=== PATIENT | male | born 1960 | race American Indian/Alaskan Native ===

== ENCOUNTER 2021-08-22 12:00 | Inpatient (IN) | payer BC ==
[2021-08-22] MEDS ORDERED: LACTATED RINGERS 1000 ML IV SOLN IV ONE (12:06)
[2021-08-22] MEDS ORDERED: ACETAMINOPHEN 500 MG TAB PO ONE (12:08)
--- NOTE | 2021-08-22 12:09 | Emergency Department Report ---
ED General Adult HPI - General Chief complaint: Weakness Stated complaint: weak PUI?: Yes Time Seen by Provider: 08/22/21 12:06 Source: patient, EMS (Verbal report received from emergency medical services. EMS documentation not available at time of chart dictation ), RN notes reviewed Mode of arrival: Stretcher Limitations: Physical Limitation - History of Present Illness Initial comments: The patient was evaluated in the emergency department for symptoms described in the history of present illness. He/she was evaluated in the context of the global COVID-19 pandemic, which necessitated consideration that the patient migh t be at risk for infection with the virus that causes COVID-19. Institutional protocols and algorithms that pertain to the evaluation of patients at risk for COVID-19 are in a state of rapid change based on information released by regulatory bodies including the CDC and federal and state organizations. These policies and algorithms were followed during the patient's care in the emergency department. Please note that these policies, procedures and recommendations changed on a rapid basis. The patient is a 61-year-old gentleman. This patient was recently admitted to [facility] July 14 through July 16. He was admitted for bacteremia and positive blood cultures. He was started on Keflex, and discontinued on Ceftin. He is supposed to follow-up with an outpatient primary care physician, Dr. Brenner, on July 30. It is unclear if he followed up. He also has a history of ICD in situ, diabetes, and was admitted to [facility] for COVID-19, and rule out C. difficile. Current medications include aspirin, atorvastatin, the aforementioned antibiotics, diclofenac, insulin, Lantus, and Flomax/tamsulosin. He is brought to the hospital today by emergency medical services with an EMS articulated complaint of weakness, fever, tachycardia, and diarrhea. The patient reports that he is been having a couple episodes of orange-yellow diarrhea. He reports that he feels very weak. He denies physical pain. The patient himself does not feel short of breath. He is found to be febrile, tachycardic, and hypotensive in the emergency room. Patient reports no anaphylactoid or anaphylactic reactions to penicillins. He states "I do not like the way it makes me feel." As per EMS, patient has been having weakness and diarrhea for the past few days. -: Gradual Consistency: constant Improves with: none Worsens with: none - Related Data Home Medications Medication Instructions Recorded Confirmed Last Taken Amlodipine Besylate [Norvasc] 10 mg PO DAILY 08/22/21 08/22/21 08/22/21 Insulin Lispro [Humalog Eusebio 5 unit SQ TID 08/22/21 08/22/21 Unknown Kwikpen] Metformin HCl [metFORMIN] 1,000 mg PO BID 08/22/21 08/22/21 Unknown Tamsulosin [Flomax] 0.4 mg PO QDAY 08/22/21 08/22/21 08/22/21 carvediloL [Coreg] 25 mg PO BID 08/22/21 08/22/21 08/22/21 Allergies Allergy/AdvReac Type Severity Reaction Status Date / Time Penicillins Allergy Unknown Verified 08/22/21 11:55 ED Review of Systems ROS: Stated complaint: DIARRHEA Other details as noted in HPI Constitutional: fever, malaise, weakness ENT: denies: congestion Respiratory: denies: cough Cardiovascular: denies: chest pain Gastrointestinal: diarrhea. denies: abdominal pain, nausea, vomiting Genitourinary: denies: dysuria Neurological: weakness. denies: numbness ED Past Medical Hx - Medications Home Medications: Home Medications Medication Instructions Recorded Confirmed Last Taken Type Amlodipine Besylate [Norvasc] 10 mg PO DAILY 08/22/21 08/22/21 08/22/21 History Insulin Lispro [Humalog Euseibo 5 unit SQ TID 08/22/21 08/22/21 Unknown History Kwikpen] Metformin HCl [metFORMIN] 1,000 mg PO BID 08/22/21 08/22/21 Unknown History Tamsulosin [Flomax] 0.4 mg PO QDAY 08/22/21 08/22/21 08/22/21 History carvediloL [Coreg] 25 mg PO BID 08/22/21 08/22/21 08/22/21 History ED Physical Exam - General Limitations: Physical Limitation General appearance: alert, anxious - Head Head exam: Present: atraumatic, normocephalic - Eye Eye exam: Present: normal appearance, EOMI. Absent: nystagmus - ENT ENT exam: Present: normal exam, normal orophraynx, mucous membranes dry, normal external ear exam - Neck Neck exam: Present: normal inspection, full ROM. Absent: tenderness, meningismus - Respiratory Respiratory exam: Present: respiratory distress, rhonchi, accessory muscle use - Cardiovascular Cardiovascular Exam: Present: normal rhythm, tachycardia, normal heart sounds. Absent: bradycardia, irregular rhythm, systolic murmur, diastolic murmur, rubs, gallop - GI/Abdominal GI/Abdominal exam: Present: soft. Absent: distended, tenderness, guarding, rebound, rigid, pulsatile mass - Rectal Rectal exam: Present: deferred - Extremities Exam Extremities exam: Present: normal inspection, full ROM, other (2+ pulses noted in the bilateral upper and lower extremities. There is no palpable cord. negative Homans sign. Muscular compartments are soft. The pelvis is stable.). Absent: pedal edema, calf tenderness - Back Exam Back exam: Present: normal inspection, full ROM. Absent: tenderness, CVA tenderness (R), CVA tenderness (L), paraspinal tenderness, vertebral tenderness - Neurological Exam Neurological exam: Present: alert, oriented X3, other (No facial droop. Tongue midline. Extraocular movements intact bilaterally. Facial sensation intact to light touch in V1, V2, V3 distribution bilaterally. 5 and a 5 strength in 4 extremities. Sensation intact to light touch in 4 extremities.) - Psychiatric Psychiatric exam: Present: anxious - Skin Skin exam: Present: warm, dry, intact, normal color. Absent: rash ED Course Vital Signs 08/22/21 08/22/21 08/22/21 12:01 12:27 12:30 Temperature 102 F H Pulse Rate 126 H 110 H 104 H Respiratory 16 28 H 27 H Rate Blood Pressure 123/67 Blood Pressure 81/52 [Left] O2 Sat by Pulse 95 97 98 Oximetry O2 Sat by Pulse Oximetry [ Digit-Finger] 08/22/21 08/22/21 08/22/21 12:32 12:46 13:00 Temperature 101.8 F H Pulse Rate 101 H 94 H 94 H Respiratory 20 21 27 H Rate Blood Pressure 1233/67 125/67 112/57 Blood Pressure 123/67 [Left] O2 Sat by Pulse 95 99 96 Oximetry O2 Sat by Pulse Oximetry [ Digit-Finger] 08/22/21 08/22/21 13:16 13:58 Temperature Pulse Rate 89 Respiratory 25 H Rate Blood Pressure 112/57 Blood Pressure [Left] O2 Sat by Pulse 99 Oximetry O2 Sat by Pulse 99 Oximetry [ Digit-Finger] - Reevaluation(s) Reevaluation #1: 08/22/21 12:17 Differential diagnosis, including but not limited to: Bacteremia, viremia, pneu monia, urinary tract infection, antibiotic associated diarrhea, COVID-19/Covid gilberto Assessment and plan: 61-year-old gentleman, who is febrile, tachycardic and hypotensive, tachypneic with rhonchorous breath sounds, recently admitted to [facility] for bacteremia. Code sepsis called overhead. Patient does not recall specifically what organism grew in his blood cultures, nor is she aware of culture results. He has rhonchorous breath sounds and is markedly tachypneic. He is awake, alert, oriented and sober with a GCS of 15. He has a nonfocal motor exam. Code sepsis called overhead. Start aggressive fluid resuscitation. Have requested medical records from [facility] to review culture results. Anticipate admission to the medical service. Start isolation precautions to rule out C. difficile, as well as rule out Covid. Patient not hypoxic at this time, does not require steroids. 08/22/21 13:37 Blood pressure is improved. Laboratory studies pending. Patient is agreeable to admission at this hospital. EKG is pending. We are still awaiting medical records from [place]. 08/22/21 13:58 Blood pressure is improved. 08/22/21 14:01 Patient's labs have resulted. He is found to have mild anemia, hyponatremia which is most likely hypovolemic hyponatremia, hypokalemia, hypomagnesemia, elevated troponin which is likely a type II troponin leak, and a lactic acido sis. His medical records have not arrived. He continued to denies physical pain. We will therefore treat him empirically with ceftriaxone and oral vancomycin. As a third generation cephalosporin, ceftriaxone is structurally similar to penicillin, and very unlikely to cause an anaphylactic and/or anaphylactoid reaction. In addition, as per his enclosed discharge summary that he arrives with, he has been prescribed Keflex as well as Ceftin, and reports tolerating those without difficulty. Hospital physician, Dr. Diaz, to admit patient to the medical service. - Pulse Oximetry Interpretation Digit-Finger Initial Pulse Oximetry Readin O2 Sat by Pulse Oximetry: 99 Actions Taken: none ED Medical Decision Making - Lab Data Result diagrams: 08/22/21 13:13 08/22/21 13:13 Vital Signs 08/22/21 12:01 Temperature 102 F H Pulse Rate 126 H Respiratory 16 Rate Blood Pressure 81/52 [Left] O2 Sat by Pulse 95 Oximetry Lab Results 08/22/21 08/22/21 08/22/21 Range/Units 13:13 13:13 13:13 WBC 4.8 (4.5-11.0) K/mm3 RBC 3.07 L (3.65-5.03) M/mm3 Hgb 10.8 L (11.8-15.2) gm/dl Hct 32.6 L (35.5-45.6) % MCV 106 H (84-94) fl MCH 35 H (28-32) pg MCHC 33 (32-34) % RDW 16.8 H (13.2-15.2) % Plt Count 82 L (140-440) K/mm3 Lymph % (Auto) 11.2 L (13.4-35.0) % [place] % (Auto) 13.0 H (0.0-7.3) % Eos % (Auto) 0.2 (0.0-4.3) % Baso % (Auto) 0.2 (0.0-1.8) % Lymph # (Auto) 0.5 L (1.2-5.4) K/mm3 [place] # (Auto) 0.6 (0.0-0.8) K/mm3 Eos # (Auto) 0.0 (0.0-0.4) K/mm3 Baso # (Auto) 0.0 (0.0-0.1) K/mm3 Seg Neutrophils % 75.4 H (40.0-70.0) % Seg Neutrophils # 3.6 (1.8-7.7) K/mm3 APTT 29.2 (24.2-36.6) Sec. VBG pH (7.320-7.420) Lactic Acid 3.20 H* (0.7-2.0) mmol/L 08/22/21 Range/Units 13:13 WBC (4.5-11.0) K/mm3 RBC (3.65-5.03) M/mm3 Hgb (11.8-15.2) gm/dl Hct (35.5-45.6) % MCV (84-94) fl MCH (28-32) pg MCHC (32-34) % RDW (13.2-15.2) % Plt Count (140-440) K/mm3 Lymph % (Auto) (13.4-35.0) % [place] % (Auto) (0.0-7.3) % Eos % (Auto) (0.0-4.3) % Baso % (Auto) (0.0-1.8) % Lymph # (Auto) (1.2-5.4) K/mm3 [place] # (Auto) (0.0-0.8) K/mm3 Eos # (Auto) (0.0-0.4) K/mm3 Baso # (Auto) (0.0-0.1) K/mm3 Seg Neutrophils % (40.0-70.0) % Seg Neutrophils # (1.8-7.7) K/mm3 APTT (24.2-36.6) Sec. VBG pH 7.456 H (7.320-7.420) Lactic Acid (0.7-2.0) mmol/L Vital Signs 08/22/21 08/22/21 08/22/21 12:01 12:27 12:30 Temperature 102 F H Pulse Rate 126 H 110 H 104 H Respiratory 16 28 H 27 H Rate Blood Pressure 123/67 Blood Pressure 81/52 [Left] O2 Sat by Pulse 95 97 98 Oximetry O2 Sat by Pulse Oximetry [ Digit-Finger] 08/22/21 08/22/21 08/22/21 12:32 12:46 13:00 Temperature 101.8 F H Pulse Rate 101 H 94 H 94 H Respiratory 20 21 27 H Rate Blood Pressure 1233/67 125/67 112/57 Blood Pressure 123/67 [Left] O2 Sat by Pulse 95 99 96 Oximetry O2 Sat by Pulse Oximetry [ Digit-Finger] 08/22/21 08/22/21 13:16 13:37 Temperature Pulse Rate 89 Respiratory 25 H Rate Blood Pressure 112/57 Blood Pressure [Left] O2 Sat by Pulse 99 Oximetry O2 Sat by Pulse 99 Oximetry [ Digit-Finger] - EKG Data EKG shows normal: sinus rhythm Rate: normal - EKG Data When compared to previous EKG there are: previous EKG unavailable 08/22/21 14:02 The EKG is interpreted at 13: 41 Sinus rhythm, rate 87 bpm. Left axis deviation, left anterior fascicular block, right bundle branch block, QTC is 5 5 1 ms. This is an abnormal EKG. This is not a STEMI. There is no prior EKG available for comparison - Radiology Data Radiology results: pending, image reviewed interpreted by me: 1 view x-ray of the chest, interpreted by myself, ICD in situ, no pneumothorax, no obvious infiltrate CHEST 1 VIEW 08/22/2021 11:37 AM INDICATION / CLINICAL INFORMATION: rhonchi tachypnea sepsis. COMPARISON: None available. FINDINGS: SUPPORT DEVICES: Stable, satisfactory device positioning. HEART / MEDIASTINUM: No significant abnormality. LUNGS / PLEURA: No significant pulmonary or pleural abnormality. No pneumothorax. ADDITIONAL FINDINGS: No significant additional findings. IMPRESSION: 1. No acute findings. Signer Name: Gen Holloway MD Signed: 08/22/2021 11:41 AM Workstation Name: [email or web address] Critical Care Time: Yes Critical care time in (mins) excluding proc time.: 35 Critical care attestation.: If time is entered above; I have spent that time in minutes in the direct care of this critically ill patient, excluding procedure time. ED Disposition Clinical Impression: Sepsis, Diarrhea, Weakness, Hypokalemia, Hypomagnesemia, Hyponatremia, Dehydration, Lactic acidosis, History of bacteremia Disposition: 09 ADMITTED INPATIENT Is pt being admited?: Yes Does the pt Need Aspirin: No Condition: Serious Referrals: PRIMARY CAREMD [Primary Care Provider] - 3-5 Days
--- NOTE | 2021-08-22 12:45 | XRay Report ---
CHEST 1 VIEW 08/22/2021 11:37 AM INDICATION / CLINICAL INFORMATION: rhonchi tachypnea sepsis. COMPARISON: None available. FINDINGS: SUPPORT DEVICES: Stable, satisfactory device positioning. HEART / MEDIASTINUM: No significant abnormality. LUNGS / PLEURA: No significant pulmonary or pleural abnormality. No pneumothorax. ADDITIONAL FINDINGS: No significant additional findings. IMPRESSION: 1. No acute findings. Signer Name: Gen Holloway MD Signed: 08/22/2021 12:41 PM Workstation Name: [id number]
[2021-08-22 13:39] LABS: Basophils % (Auto) 0.2 % (0.0-1.8); Eosinophils % (Auto) 0.2 % (0.0-4.3); Hematocrit 32.6 % (35.5-45.6); Hemoglobin 10.8 gm/dl (11.8-15.2); Lymphocytes # (Auto) 0.5 K/mm3 (1.2-5.4); Lymphocytes % (Auto) 11.2 % (13.4-35.0); Mean Corpuscular HGB Conc 33 % (32-34); Mean Corpuscular Volume 106 fl (84-94); Monocytes # (Auto) 0.6 K/mm3 (0.0-0.8); Red Blood Count 3.07 M/mm3 (3.65-5.03); Red Cell Distribution Width 16.8 % (13.2-15.2)
[2021-08-22 13:44] LABS: Platelet Count 82 K/mm3 (140-440)
[2021-08-22 13:53] LABS: Alanine Aminotransferase 21 units/L (7-56); Albumin 2.9 g/dL (3.9-5); BUN/Creatinine Ratio 12; Blood Urea Nitrogen 14 mg/dL (9-20); Hemolysis Index 13
[2021-08-22] MEDS ORDERED: cefTRIAXone/NS 1 GM/50 ML 1 GM/50 ML BAG IV ONE (13:57)
[2021-08-22] MEDS ORDERED: POTASSIUM CHLORIDE ER 20 MEQ TAB PO ONE (13:57)
[2021-08-22] MEDS ORDERED: MAGNESIUM OXIDE 400 MG TAB PO STA (14:00)
--- NOTE | 2021-08-22 14:34 | History and Physical Report ---
History of Present Illness Chief complaint: I feel wiped out History of present illness: 61 YO Male with HTN, DM, BPH presents to ED for evaluation. Patient states "I feel wiped out". Patient states that he has experienced generalized weakness, fever, rapid heart rate, and multiple loose stools over the past 3 days with persistent and worsening symptoms over the same timeframe. EMS was notified and upon arrival the patient was found to be in distress and subsequently transported to [facility] for further care and evaluation of the aforementioned symptoms. The patient was seen and evaluated in the emergency department. All lab and imaging studies reviewed. The patient was found to have fever with a temperature of 102 F, a heart rate of 126, respiratory rate in the 30s, and a blood pressure of 81/52. Patient found to have sepsis, acidosis, hyponatremia, hypokalemia, hypomagnesemia, as well as type II NSTEMI. Patient admitted to medical floor with telemetry and initiated on sepsis protocol, as well as ACS protocol. Patient denies chest pain, palpitation, productive cough, skin rash, recent contact, unilateral leg swelling, calf pain, individual/family history of DVT/PE/bleeding/blood clotting disorders. No prior admission for review. No medication listed at time of admission for reconciliation. Advanced care planning conducted in ED. Past History Past Medical History: diabetes, hypertension, other (See HPI) Past Surgical History: No surgical history, Other (Reviewed) Social history: , lives with family. denies: smoking, alcohol abuse Family history: diabetes, hypertension Medications and Allergies Allergies Allergy/AdvReac Type Severity Reaction Status Date / Time Penicillins Allergy Unknown Verified 08/22/21 11:55 Home Medications Medication Instructions Recorded Confirmed Last Taken Type Amlodipine Besylate [Norvasc] 10 mg PO DAILY 08/22/21 08/22/21 08/22/21 History Insulin Lispro [Humalog Eusebio 5 unit SQ TID 08/22/21 08/22/21 Unknown History Kwikpen] Metformin HCl [metFORMIN] 1,000 mg PO BID 08/22/21 08/22/21 Unknown History Tamsulosin [Flomax] 0.4 mg PO QDAY 08/22/21 08/22/21 08/22/21 History carvediloL [Coreg] 25 mg PO BID 08/22/21 08/22/21 08/22/21 History Active Meds: Active Medications Magnesium Sulfate (Magnesium Sulfate 4gm/100ml) 4 gm in 100 mls @ 25 mls/hr IV ONCE ONE Stop: 08/22/21 17:59 Potassium Chloride (Kcl 10meq/100ml) 10 meq in 100 mls @ 100 mls/hr IV Q1H LAKISHA Stop: 08/22/21 17:59 Vancomycin HCl (Vancomycin 250 Mg/10 Ml Oral Liqd) 250 mg PO ONCE ONE; Protocol Stop: 08/22/21 13:58 Review of Systems Constitutional: fever, weakness, no weight loss, no weight gain Ears, nose, mouth and throat: no ear pain, no tinnitis, no nose pain Cardiovascular: no chest pain, no palpitations, no syncope, no lightheadedness Respiratory: no cough, no cough with sputum, no hemoptysis, no shortness of breath Gastrointestinal: diarrhea, no abdominal pain, no nausea, no constipation Genitourinary Male: no hematuria, no flank pain, no discharge, no urinary frequency, no urinary hesitancy Rectal: no pain, no incontinence, no bleeding Musculoskeletal: no neck stiffness, no shooting arm pain, no low back pain Integumentary: no rash, no pruritis, no redness, no sores, no jaundice Neurological: no head injury, no paralysis, no parathesias, no tingling, no seizures, no tremors Psychiatric: no anxiety, no change in sleep habits, no insomnia, no change in appetite, no change in libido, no suicidal ideation Endocrine: no cold intolerance, no heat intolerance, no excessive thirst, no polyuria, no flushing Hematologic/Lymphatic: no easy bruising, no easy bleeding, no lymphadenopathy Allergic/Immunologic: no allergic rhinitis Exam - Constitutional Vitals: Temp Pulse Resp BP Pulse Ox 101.8 F H 89 25 H 112/57 99 08/22/21 12:32 08/22/21 13:16 08/22/21 13:16 08/22/21 13:16 08/22/21 14:03 General appearance: Present: mild distress - EENT Eyes: Present: PERRL ENT: hearing intact, clear oral mucosa - Neck Neck: Present: supple, normal ROM - Respiratory Respiratory effort: normal Respiratory: bilateral: CTA - Cardiovascular Rhythm: other (Tachycardia) Heart Sounds: Present: S1 & S2. Absent: rub, click - Extremities Extremities: pulses symmetrical, No edema Peripheral Pulses: abnormal (Capillary refill greater than 3.5 seconds) - Abdominal General gastrointestinal: Present: soft, non-tender, non-distended, normal bowel sounds Male genitourinary: Present: normal - Integumentary Integumentary: Present: dry, clammy, decreased turgor - Musculoskeletal Musculoskeletal: generalized weakness - Psychiatric Psychiatric: appropriate mood/affect, intact judgment & insight - Neurologic Neurologic: CNII-XII intact, moves all extremities HEART Score - HEART Score Troponin: Troponin T 0.032 ng/mL (0.00-0.029) H 08/22/21 13:13 Results - Labs CBC & Chem 7: 08/22/21 13:13 08/22/21 13:13 Labs: Abnormal lab results 08/22/21 08/22/21 08/22/21 Range/Units 13:13 13:13 13:13 RBC 3.07 L (3.65-5.03) M/mm3 Hgb 10.8 L (11.8-15.2) gm/dl Hct 32.6 L (35.5-45.6) % MCV 106 H (84-94) fl MCH 35 H (28-32) pg RDW 16.8 H (13.2-15.2) % Plt Count 82 L (140-440) K/mm3 Lymph % (Auto) 11.2 L (13.4-35.0) % [place] % (Auto) 13.0 H (0.0-7.3) % Lymph # (Auto) 0.5 L (1.2-5.4) K/mm3 Seg Neutrophils % 75.4 H (40.0-70.0) % VBG pH (7.320-7.420) Sodium 127 L (137-145) mmol/L Potassium 2.7 L* (3.6-5.0) mmol/L Chloride 90.5 L (98-107) mmol/L Carbon Dioxide 20 L (22-30) mmol/L Glucose 121 H (75-100) mg/dL Lactic Acid 3.20 H* (0.7-2.0) mmol/L Calcium 7.0 L (8.4-10.2) mg/dL Magnesium (1.7-2.3) mg/dL AST 50 H (5-40) units/L Troponin T 0.032 H (0.00-0.029) ng/mL Total Protein 5.4 L (6.3-8.2) g/dL Albumin 2.9 L (3.9-5) g/dL 08/22/21 08/22/21 Range/Units 13:13 13:13 RBC (3.65-5.03) M/mm3 Hgb (11.8-15.2) gm/dl Hct (35.5-45.6) % MCV (84-94) fl MCH (28-32) pg RDW (13.2-15.2) % Plt Count (140-440) K/mm3 Lymph % (Auto) (13.4-35.0) % [place] % (Auto) (0.0-7.3) % Lymph # (Auto) (1.2-5.4) K/mm3 Seg Neutrophils % (40.0-70.0) % VBG pH 7.456 H (7.320-7.420) Sodium (137-145) mmol/L Potassium (3.6-5.0) mmol/L Chloride (98-107) mmol/L Carbon Dioxide (22-30) mmol/L Glucose (75-100) mg/dL Lactic Acid (0.7-2.0) mmol/L Calcium (8.4-10.2) mg/dL Magnesium 0.70 L* (1.7-2.3) mg/dL AST (5-40) units/L Troponin T (0.00-0.029) ng/mL Total Protein (6.3-8.2) g/dL Albumin (3.9-5) g/dL Assessment and Plan - Patient Problems (1) Sepsis Current Visit: Yes Status: Acute Plan to address problem: Sepsis protocol: CBC, CMP, chest x-ray, urinalysis, empiric IV antibiotic therapy, IV fluid resuscitation therapy, maintain mean arterial pressure greater than equal to 65, serial lactic acid level, monitor urine output every shift, strict I's/O, monitor fluid balance. (2) NSTEMI (non-ST elevated myocardial infarction) Current Visit: Yes Status: Acute Plan to address problem: Type II NSTEMI: Serial cardiac enzymes, EKG, remote telemetry monitoring, supportive care. (3) Hypokalemia Current Visit: Yes Status: Acute Plan to address problem: Repleted in ED. Repeat BMP in a.m. (4) Hypomagnesemia Current Visit: Yes Status: Acute Plan to address problem: Repleted in ED (5) Hyponatremia Current Visit: Yes Status: Acute Plan to address problem: IV fluid resuscitation therapy, repeat BMP in a.m. (6) Lactic acidosis Current Visit: Yes Status: Acute (7) DVT prophylaxis Current Visit: Yes Status: Acute Plan to address problem: SCD to bilateral lower extremities while in bed (8) Advance care planning Current Visit: Yes Status: Acute Plan to address problem: Disease education conducted, care plan discussed, diagnoses discussed, prognosis discussed, patient is full code. Patient acknowledges understanding and agreement with care plan, +30 minutes.
[2021-08-22] MEDS ORDERED: ACETAMINOPHEN 325 MG TAB PO PRN ×3 (14:36→17:00)
[2021-08-22] MEDS ORDERED: DEXTROSE 50% IN WATER (25GM) 50 ML SYRINGE IV PRN (14:40)
[2021-08-22] MEDS ORDERED: DEXTROSE 10% *Hypoglycemia IV PRN (14:59)
[2021-08-22] MEDS ORDERED: HYDROmorphone 1 MG/1 ML INJ IV PRN ×2 (15:00)
[2021-08-22] MEDS ORDERED: ONDANSETRON 4 MG/2 ML INJ IV PRN (15:00)
[2021-08-22] MEDS ORDERED: VANCOMYCIN 250 MG/10 ML ORAL LIQD PO NR (15:00)
[2021-08-22] MEDS ORDERED: oxyCODONE /ACETAMINOPHEN 5-325MG TAB PO PRN (15:00)
[2021-08-22] MEDS: INSULIN REGULAR, HUMAN 100 UNITS/1 ML SUB-Q SCH ×2 (15:26→21:35)
[2021-08-22] MEDS ORDERED: MAGNESIUM SULFATE 4 GM/100 ML BAG IV ONE (15:30)
[2021-08-22] MEDS ORDERED: POTASSIUM CHLORIDE 10 MEQ 10 MEQ/100 ML BAG IV SCH (15:30)
[2021-08-22] MEDS ORDERED: SODIUM CHLORIDE 0.9% 500 ML 500 ML ONE (15:43)
[2021-08-22 15:58] LABS: Chol/HDL Ratio 3.65 %; HDL Cholesterol 20 mg/dL (40-59); LDL Cholesterol,Direct 25 mg/dL (50-130)
[2021-08-22] MEDS ORDERED: ALBUTEROL 2.5 MG/3 ML NEBU IH PRN (16:00)
[2021-08-22] MEDS ORDERED: NITROGLYCERIN 0.4 MG TAB SUBL SL PRN (17:00)
[2021-08-22] MEDS ORDERED: traMADol 50 MG TAB PO PRN (17:00)
[2021-08-22 17:13] LABS: Bilirubin,Urine NEG (Negative); Blood,Urine MOD (Negative); Color,Urine Yellow (Yellow); Mucus,Urine FEW /HPF; Protein,Urine <15 mg/dL mg/dL (Negative); Urobilinogen,Urine < 2.0 mg/dL (<2.0)
[2021-08-22] MEDS: POTASSIUM CHLORIDE 10 MEQ 10 MEQ/100 ML BAG IV SCH ×3 (19:03→23:17)
[2021-08-23 05:53] LABS: Hematocrit 31.4 % (35.5-45.6); Hemoglobin 10.4 gm/dl (11.8-15.2); Mean Corpuscular HGB Conc 33 % (32-34); Mean Corpuscular Volume 109 fl (84-94); Red Blood Count 2.89 M/mm3 (3.65-5.03); Red Cell Distribution Width 16.6 % (13.2-15.2)
[2021-08-23 05:55] LABS: Platelet Count 82 K/mm3 (140-440)
[2021-08-23 05:59] LABS: BUN/Creatinine Ratio 11; Blood Urea Nitrogen 10 mg/dL (9-20); Calcium 7.1 mg/dL (8.4-10.2); Hemolysis Index 18
[2021-08-23 06:50] LABS: Basophils % (Manual) 0 % (0.0-1.8); Eosinophils % (Manual) 0 % (0.0-4.3); Total Cells Counted 100
[2021-08-23 06:51] LABS: Anisocytosis 1+; Platelet Estimate Consistent w Auto
[2021-08-23] MEDS: INSULIN REGULAR, HUMAN 100 UNITS/1 ML SUB-Q SCH ×5 (06:58→22:00)
--- NOTE | 2021-08-23 09:40 | Progress Note ---
Assessment and Plan Assessment and plan: Sepsis. Patient meets criteria given the tachycardia, tachypnea, fever and diagnosis of UTI. UTI. NSTEMI. Etiology likely type II NM from sepsis Hyponatremia Hypokalemia Hypomagnesia Diarrhea. 08/23/2021. Continue IV antibiotics and follow-up blood and urine cultures. Elevated troponins likely secondary from type II NM from sepsis. Troponin has normalized. Echocardiogram is pending and will consider cardiology consultation. Patient reports recent history of UTI in June with associated sepsis. We will check CT scan of the abdomen pelvis. Continue to replete electrolytes History Interval history: No new issues overnight. Hospitalist Physical - Constitutional Vitals: Temp Pulse Resp BP Pulse Ox 97.4 F L 87 16 117/65 98 08/23/21 04:13 08/23/21 04:13 08/23/21 04:13 08/23/21 04:13 08/23/21 04:16 General appearance: Present: mild distress - EENT Eyes: Present: PERRL, EOM intact ENT: hearing intact, clear oral mucosa, dentition normal - Neck Neck: Present: supple, normal ROM - Respiratory Respiratory effort: normal Respiratory: bilateral: CTA - Cardiovascular Rhythm: regular Heart Sounds: Present: S1 & S2. Absent: gallop, rub - Extremities Extremities: no ischemia, No edema, Full ROM - Abdominal General gastrointestinal: soft, non-tender, non-distended, normal bowel sounds - Integumentary Integumentary: Present: clear, warm, dry - Neurologic Neurologic: CNII-XII intact, moves all extremities HEART Score - HEART Score Troponin: Troponin T 0.021 ng/mL (0.00-0.029) 08/22/21 23:21 Results - Labs CBC & Chem 7: 08/23/21 04:16 08/23/21 04:16 Labs: Laboratory Last Values WBC 4.9 K/mm3 (4.5-11.0) 08/23/21 04:16 RBC 2.89 M/mm3 (3.65-5.03) L 08/23/21 04:16 Hgb 10.4 gm/dl (11.8-15.2) L 08/23/21 04:16 Hct 31.4 % (35.5-45.6) L 08/23/21 04:16 MCV 109 fl (84-94) H 08/23/21 04:16 MCH 36 pg (28-32) H 08/23/21 04:16 MCHC 33 % (32-34) 08/23/21 04:16 RDW 16.6 % (13.2-15.2) H 08/23/21 04:16 Plt Count 82 K/mm3 (140-440) L 08/23/21 04:16 Lymph % (Auto) 11.2 % (13.4-35.0) L 08/22/21 13:13 [place] % (Auto) [employer] 08/23/21 04:16 Eos % (Auto) 0.2 % (0.0-4.3) 08/22/21 13:13 Baso % (Auto) 0.2 % (0.0-1.8) 08/22/21 13:13 Lymph # (Auto) 0.5 K/mm3 (1.2-5.4) L 08/22/21 13:13 [place] # (Auto) 0.6 K/mm3 (0.0-0.8) 08/22/21 13:13 Eos # (Auto) 0.0 K/mm3 (0.0-0.4) 08/22/21 13:13 Baso # (Auto) 0.0 K/mm3 (0.0-0.1) 08/22/21 13:13 Add Manual Diff Complete 08/23/21 04:16 Total Counted 100 08/23/21 04:16 Seg Neutrophils % 75.4 % (40.0-70.0) H 08/22/21 13:13 Seg Neuts % (Manual) 74.0 % (40.0-70.0) H 08/23/21 04:16 Band Neutrophils % 0 % 08/23/21 04:16 Lymphocytes % (Manual) 24.0 % (13.4-35.0) 08/23/21 04:16 Reactive Lymphs % (Man) 0 % 08/23/21 04:16 Monocytes % (Manual) 2.0 % (0.0-7.3) 08/23/21 04:16 Eosinophils % (Manual) 0 % (0.0-4.3) 08/23/21 04:16 Basophils % (Manual) 0 % (0.0-1.8) 08/23/21 04:16 Metamyelocytes % 0 % 08/23/21 04:16 Myelocytes % 0 % 08/23/21 04:16 Promyelocytes % 0 % 08/23/21 04:16 Blast Cells % 0 % 08/23/21 04:16 Nucleated RBC % Not Reportable 08/23/21 04:16 Seg Neutrophils # 3.6 K/mm3 (1.8-7.7) 08/22/21 13:13 Seg Neutrophils # Man 3.6 K/mm3 (1.8-7.7) 08/23/21 04:16 Band Neutrophils # 0.0 K/mm3 08/23/21 04:16 Lymphocytes # (Manual) 1.2 K/mm3 (1.2-5.4) 08/23/21 04:16 Abs React Lymphs (Man) 0.0 K/mm3 08/23/21 04:16 Monocytes # (Manual) 0.1 K/mm3 (0.0-0.8) 08/23/21 04:16 Eosinophils # (Manual) 0.0 K/mm3 (0.0-0.4) 08/23/21 04:16 Basophils # (Manual) 0.0 K/mm3 (0.0-0.1) 08/23/21 04:16 Metamyelocytes # 0.0 K/mm3 08/23/21 04:16 Myelocytes # 0.0 K/mm3 08/23/21 04:16 Promyelocytes # 0.0 K/mm3 08/23/21 04:16 Blast Cells # 0.0 K/mm3 08/23/21 04:16 WBC Morphology Not Reportable 08/23/21 04:16 Hypersegmented Neuts Not Reportable 08/23/21 04:16 Hyposegmented Neuts Not Reportable 08/23/21 04:16 Hypogranular Neuts Not Reportable 08/23/21 04:16 Smudge Cells Not Reportable 08/23/21 04:16 Toxic Granulation Not Reportable 08/23/21 04:16 Toxic Vacuolation Not Reportable 08/23/21 04:16 Dohle Bodies Not Reportable 08/23/21 04:16 Pelger-Huet Anomaly Not Reportable 08/23/21 04:16 Nathanael Rods Not Reportable 08/23/21 04:16 Platelet Estimate Consistent w auto 08/23/21 04:16 Clumped Platelets Not Reportable 08/23/21 04:16 Plt Clumps, EDTA Not Reportable 08/23/21 04:16 Large Platelets Not Reportable 08/23/21 04:16 Giant Platelets Not Reportable 08/23/21 04:16 Platelet Satelliting Not Reportable 08/23/21 04:16 Plt Morphology Comment Not Reportable 08/23/21 04:16 RBC Morphology Not Reportable 08/23/21 04:16 Dimorphic RBCs Not Reportable 08/23/21 04:16 Polychromasia Not Reportable 08/23/21 04:16 Hypochromasia Not Reportable 08/23/21 04:16 Poikilocytosis Not Reportable 08/23/21 04:16 Anisocytosis 1+ 08/23/21 04:16 Microcytosis Not Reportable 08/23/21 04:16 Macrocytosis Not Reportable 08/23/21 04:16 Spherocytes Not Reportable 08/23/21 04:16 Pappenheimer Bodies Not Reportable 08/23/21 04:16 Sickle Cells Not Reportable 08/23/21 04:16 Target Cells Not Reportable 08/23/21 04:16 Tear Drop Cells Not Reportable 08/23/21 04:16 Ovalocytes Not Reportable 08/23/21 04:16 Helmet Cells Not Reportable 08/23/21 04:16 [place] Bodies Not Reportable 08/23/21 04:16 [place] Rings Not Reportable 08/23/21 04:16 [place] Cells Not Reportable 08/23/21 04:16 Bite Cells Not Reportable 08/23/21 04:16 Crenated Cell Not Reportable 08/23/21 04:16 Elliptocytes Not Reportable 08/23/21 04:16 Acanthocytes (Spur) Not Reportable 08/23/21 04:16 Rouleaux Not Reportable 08/23/21 04:16 Hemoglobin C Crystals Not Reportable 08/23/21 04:16 Schistocytes Not Reportable 08/23/21 04:16 Malaria parasites Not Reportable 08/23/21 04:16 Bob Bodies Not Reportable 08/23/21 04:16 Hem Pathologist Commnt No 08/23/21 04:16 APTT 29.2 Sec. (24.2-36.6) 08/22/21 13:13 VBG pH 7.456 (7.320-7.420) H 08/22/21 13:13 Sodium 133 mmol/L (137-145) L 08/23/21 04:16 Potassium 3.0 mmol/L (3.6-5.0) L 08/23/21 04:16 Chloride 97.6 mmol/L (98-107) L 08/23/21 04:16 Carbon Dioxide 20 mmol/L (22-30) L 08/23/21 04:16 Anion Gap 18 mmol/L 08/23/21 04:16 BUN 10 mg/dL (9-20) 08/23/21 04:16 Creatinine 0.9 mg/dL (0.8-1.3) 08/23/21 04:16 Estimated GFR > 60 ml/min 08/23/21 04:16 BUN/Creatinine Ratio 11 % 08/23/21 04:16 Glucose 121 mg/dL (75-100) H 08/23/21 04:16 POC Glucose 140 mg/dL (70-105) H 08/23/21 07:32 Lactic Acid 1.40 mmol/L (0.7-2.0) 08/22/21 23:21 Calcium 7.1 mg/dL (8.4-10.2) L 08/23/21 04:16 Magnesium 0.70 mg/dL (1.7-2.3) L* 08/22/21 13:13 Total Bilirubin 1.10 mg/dL (0.1-1.2) 08/22/21 13:13 AST 50 units/L (5-40) H 08/22/21 13:13 ALT 21 units/L (7-56) 08/22/21 13:13 Alkaline Phosphatase 45 units/L (35-129) 08/22/21 13:13 Total Creatine Kinase 105 units/L (55-170) 08/22/21 13:13 Troponin T 0.021 ng/mL (0.00-0.029) 08/22/21 23:21 Total Protein 5.4 g/dL (6.3-8.2) L 08/22/21 13:13 Albumin 2.9 g/dL (3.9-5) L 08/22/21 13:13 Albumin/Globulin Ratio 1.2 % 08/22/21 13:13 Triglycerides 128 mg/dL (2-149) 08/22/21 13:13 Cholesterol 73 mg/dL (50-199) 08/22/21 13:13 LDL Cholesterol Direct 25 mg/dL (50-130) L 08/22/21 13:13 HDL Cholesterol 20 mg/dL (40-59) L 08/22/21 13:13 Cholesterol/HDL Ratio 3.65 % 08/22/21 13:13 TSH 2.590 mlU/mL (0.270-4.200) 08/22/21 13:13 Urine Color Yellow (Yellow) 08/22/21 Unknown Urine Turbidity Slightly-cloudy (Clear) 08/22/21 Unknown Urine pH 6.0 (5.0-7.0) 08/22/21 Unknown Ur Specific [place] 1.002 (1.003-1.030) L 08/22/21 Unknown Urine Protein <15 mg/dl mg/dL (Negative) 08/22/21 Unknown Urine Glucose (UA) Neg mg/dL (Negative) 08/22/21 Unknown Urine Ketones Neg mg/dL (Negative) 08/22/21 Unknown Urine Blood Mod (Negative) 08/22/21 Unknown Urine Nitrite Neg (Negative) 08/22/21 Unknown Urine Bilirubin Neg (Negative) 08/22/21 Unknown Urine Urobilinogen < 2.0 mg/dL (<2.0) 08/22/21 Unknown Ur Leukocyte Esterase Lg (Negative) 08/22/21 Unknown Urine WBC (Auto) 176.0 /HPF (0.0-6.0) H 08/22/21 Unknown Urine RBC (Auto) 9.0 /HPF (0.0-6.0) 08/22/21 Unknown U Epithel Cells (Auto) < 1.0 /HPF (0-13.0) 08/22/21 Unknown Urine Mucus Few /HPF 08/22/21 Unknown Microbiology: Microbiology 08/22/21 Unknown Urine,Clean Catch Urine Culture - Preliminary 08/22/21 13:13 Peripheral/Venous Blood Culture - Preliminary Culture in Progress 08/22/21 13:13 Peripheral/Venous Blood Culture - Preliminary Culture in Progress Swann/IV: Voiding Method Urinal Active Medications - Current Medications Current Medications: Generic Name Dose Route Start Last Admin Trade Name Freq PRN Reason Stop Dose Admin Acetaminophen 650 mg 08/22/21 15:00 Acetaminophen 325 Mg Tab PO Q4H PRN Pain MILD(1-3)/Fever >100.5/LEMA Albuterol 2.5 mg 08/22/21 16:00 Albuterol 2.5 Mg/3 Ml Nebu IH Q4HRT PRN Shortness Of Breath Aspirin 325 mg 08/23/21 10:00 Aspirin Ec 325 Mg Tab PO QDAY LAKISHA Dextrose 0 ml 08/22/21 14:59 Dextrose 10% *Hypoglycemia IV PRN PRN Hypoglycemia Hydromorphone HCl 0.25 mg 08/22/21 15:00 Hydromorphone 1 Mg/1 Ml Inj IV Q4H PRN Pain, Moderate (4-6) Hydromorphone HCl 0.5 mg 08/22/21 15:00 Hydromorphone 1 Mg/1 Ml Inj IV Q23H PRN Pain , Severe (7-10) Levofloxacin/Dextrose 750 mg in 150 mls @ 100 mls/hr 08/22/21 16:00 08/22/21 15:47 Levaquin 750mg/150ml IV 08/26/21 17:29 100 mls/hr Q24H LAKISHA Administration Protocol Insulin Human Regular 0 units 08/22/21 15:00 08/23/21 06:58 Insulin Regular, Human 100 Units/1 Ml SUB-Q Not Given Q6H [facility]1983 Protocol Nitroglycerin 0.4 mg 08/22/21 17:00 Nitroglycerin 0.4 Mg Tab Subl SL Q5M PRN Chest Pain Ondansetron HCl 4 mg 08/22/21 15:00 Ondansetron 4 Mg/2 Ml Inj IV Q8H PRN Nausea And Vomiting Oxycodone/Acetaminophen 1 tab 08/22/21 15:00 Oxycodone /Acetaminophen 5-325mg Tab PO Q16H PRN Pain, Moderate (4-6) Sodium Chloride 10 ml 08/22/21 22:00 08/22/21 21:36 Sodium Chloride 0.9% 10 Ml Flush Syringe IV 10 ml BID LAKISHA Administration Sodium Chloride 10 ml 08/22/21 15:00 Sodium Chloride 0.9% 10 Ml Flush Syringe IV PRN PRN LINE FLUSH Sodium Chloride 10 ml 08/22/21 17:00 Sodium Chloride 0.9% 10 Ml Flush Syringe IV PRN PRN LINE FLUSH Tamsulosin HCl 0.4 mg 08/23/21 10:00 Tamsulosin 0.4 Mg Cap PO QDAY LAKISHA Tramadol HCl 50 mg 08/22/21 17:00 Tramadol 50 Mg Tab PO Q6H PRN Pain, Moderate (4-6)
[2021-08-23] MEDS ORDERED: POTASSIUM CHLORIDE ER 20 MEQ TAB PO NR (10:00)
[2021-08-23] MEDS: ASPIRIN EC 325 MG TAB PO SCH (10:19)
[2021-08-23] MEDS: TAMSULOSIN 0.4 MG CAP PO SCH (10:23)
--- NOTE | 2021-08-23 12:14 | Cat Scan Report ---
CT ABDOMEN AND PELVIS WITHOUT IV CONTRAST INDICATION: UTI. COMPARISON: None available. TECHNIQUE: All CT scans at this facility use dose modulation, automated exposure control, iterative reconstructi on or weight based dosing, when appropriate, to reduce radiation dose to as low as reasonably achieva ble. FINDINGS: Lung Bases: Left basilar opacities are likely atelectatic. Skeletal System: No acute abnormality. ABDOMEN: Liver: Diffuse steatosis. Gallbladder: Contracted. Bile Ducts: No significant abnormality. Adrenals: No significant abnormality. Right Kidney: Upper pole cortical cyst. No acute finding. Left Kidney: No significant abnormality. Pancreas: No significant abnormality. Spleen: No significant abnormality. Upper GI tract: No significant abnormality. Lymph Nodes: No significant adenopathy. Aorta: No significant abnormality. Additional Findings: There is a fat-containing midline supraumbilical ventral hernia (axial image 95) . PELVIS: Colon: No acute abnormality. Urinary Bladder and Distal Ureters: There is mild bladder wall thickening. No perivesical stranding. Appendix: No significant abnormality. Lymph Nodes: No significant adenopathy. Additional Findings: Prostate is enlarged. IMPRESSION: 1. Mild bladder wall thickening may be due to relative decompression or some degree of outlet obstru ction, given the enlarged prostate. 2. Incidental findings, as above. Signer Name: John Lamar MD Signed: 08/23/2021 12:08 PM Workstation Name: [id number]
[2021-08-24 06:46] VITALS: BP 136/79
--- NOTE | 2021-08-24 10:41 | Progress Note ---
Assessment and Plan Assessment and plan: Sepsis. Patient meets criteria given the tachycardia, tachypnea, fever and diagnosis of UTI. UTI. Toxic metabolic encephalopathy NSTEMI. Etiology likely type II PR from sepsis Hyponatremia Hypokalemia Hypomagnesia Diarrhea. 08/23/2021. Continue IV antibiotics and follow-up blood and urine cultures. Elevated troponins likely secondary from type II PR from sepsis. Troponin has normalized. Echocardiogram is pending and will consider cardiology consultation. Patient reports recent history of UTI in June with associated sepsis. We will check CT scan of the abdomen pelvis. Continue to replete electrolytes 08/24/2021. Patient family member reports patient appeared to be more confused last night that was noticed with multiple telephone calls. Patient was on the phone with his when I entered the room and she was extremely upset that patient was confused. I explained to the that my encounter with the patient during my rounds was a new finding and agreed with her assessment. The patient's stated that the night nurse did not agree that the patient was confused and was a part of her frustration. I discussed the situation with the charge nurse to attempt service recovery. I later followed up with the with a telephone call at [phone] and informed her of the discussion I had with nursing. I also reported the CT abdomen findings of thickened bladder and enlarged prostate as well as negative blood and urine cultures up to date. ID consultation was ordered and is pending. However, patient's states that she wants to sign her out AMA and take him to [place] where he was hospitalized over the holidays. History Interval history: Patient more confused last night per family Hospitalist Physical - Constitutional Vitals: Temp Pulse Resp BP Pulse Ox 97.8 F 80 18 136/79 96 08/24/21 05:50 08/24/21 05:50 08/24/21 05:50 08/24/21 05:50 08/24/21 05:50 General appearance: Present: mild distress - EENT Eyes: Present: PERRL, EOM intact ENT: hearing intact, clear oral mucosa, dentition normal - Neck Neck: Present: supple, normal ROM - Respiratory Respiratory effort: normal Respiratory: bilateral: CTA - Cardiovascular Rhythm: regular Heart Sounds: Present: S1 & S2. Absent: gallop, rub - Extremities Extremities: no ischemia, No edema, Full ROM - Abdominal General gastrointestinal: soft, non-tender, non-distended, normal bowel sounds - Integumentary Integumentary: Present: clear, warm, dry - Neurologic Neurologic: CNII-XII intact, moves all extremities HEART Score - HEART Score Troponin: Troponin T 0.021 ng/mL (0.00-0.029) 08/22/21 23:21 Results - Labs CBC & Chem 7: 08/23/21 04:16 08/23/21 04:16 Labs: Laboratory Last Values WBC 4.9 K/mm3 (4.5-11.0) 08/23/21 04:16 RBC 2.89 M/mm3 (3.65-5.03) L 08/23/21 04:16 Hgb 10.4 gm/dl (11.8-15.2) L 08/23/21 04:16 Hct 31.4 % (35.5-45.6) L 08/23/21 04:16 MCV 109 fl (84-94) H 08/23/21 04:16 MCH 36 pg (28-32) H 08/23/21 04:16 MCHC 33 % (32-34) 08/23/21 04:16 RDW 16.6 % (13.2-15.2) H 08/23/21 04:16 Plt Count 82 K/mm3 (140-440) L 08/23/21 04:16 Lymph % (Auto) 11.2 % (13.4-35.0) L 08/22/21 13:13 [place] % (Auto) [place] 08/23/21 04:16 Eos % (Auto) 0.2 % (0.0-4.3) 08/22/21 13:13 Baso % (Auto) 0.2 % (0.0-1.8) 08/22/21 13:13 Lymph # (Auto) 0.5 K/mm3 (1.2-5.4) L 08/22/21 13:13 [place] # (Auto) 0.6 K/mm3 (0.0-0.8) 08/22/21 13:13 Eos # (Auto) 0.0 K/mm3 (0.0-0.4) 08/22/21 13:13 Baso # (Auto) 0.0 K/mm3 (0.0-0.1) 08/22/21 13:13 Add Manual Diff Complete 08/23/21 04:16 Total Counted 100 08/23/21 04:16 Seg Neutrophils % 75.4 % (40.0-70.0) H 08/22/21 13:13 Seg Neuts % (Manual) 74.0 % (40.0-70.0) H 08/23/21 04:16 Band Neutrophils % 0 % 08/23/21 04:16 Lymphocytes % (Manual) 24.0 % (13.4-35.0) 08/23/21 04:16 Reactive Lymphs % (Man) 0 % 08/23/21 04:16 Monocytes % (Manual) 2.0 % (0.0-7.3) 08/23/21 04:16 Eosinophils % (Manual) 0 % (0.0-4.3) 08/23/21 04:16 Basophils % (Manual) 0 % (0.0-1.8) 08/23/21 04:16 Metamyelocytes % 0 % 08/23/21 04:16 Myelocytes % 0 % 08/23/21 04:16 Promyelocytes % 0 % 08/23/21 04:16 Blast Cells % 0 % 08/23/21 04:16 Nucleated RBC % Not Reportable 08/23/21 04:16 Seg Neutrophils # 3.6 K/mm3 (1.8-7.7) 08/22/21 13:13 Seg Neutrophils # Man 3.6 K/mm3 (1.8-7.7) 08/23/21 04:16 Band Neutrophils # 0.0 K/mm3 08/23/21 04:16 Lymphocytes # (Manual) 1.2 K/mm3 (1.2-5.4) 08/23/21 04:16 Abs React Lymphs (Man) 0.0 K/mm3 08/23/21 04:16 Monocytes # (Manual) 0.1 K/mm3 (0.0-0.8) 08/23/21 04:16 Eosinophils # (Manual) 0.0 K/mm3 (0.0-0.4) 08/23/21 04:16 Basophils # (Manual) 0.0 K/mm3 (0.0-0.1) 08/23/21 04:16 Metamyelocytes # 0.0 K/mm3 08/23/21 04:16 Myelocytes # 0.0 K/mm3 08/23/21 04:16 Promyelocytes # 0.0 K/mm3 08/23/21 04:16 Blast Cells # 0.0 K/mm3 08/23/21 04:16 WBC Morphology Not Reportable 08/23/21 04:16 Hypersegmented Neuts Not Reportable 08/23/21 04:16 Hyposegmented Neuts Not Reportable 08/23/21 04:16 Hypogranular Neuts Not Reportable 08/23/21 04:16 Smudge Cells Not Reportable 08/23/21 04:16 Toxic Granulation Not Reportable 08/23/21 04:16 Toxic Vacuolation Not Reportable 08/23/21 04:16 Dohle Bodies Not Reportable 08/23/21 04:16 Pelger-Huet Anomaly Not Reportable 08/23/21 04:16 Nathanael Rods Not Reportable 08/23/21 04:16 Platelet Estimate Consistent w auto 08/23/21 04:16 Clumped Platelets Not Reportable 08/23/21 04:16 Plt Clumps, EDTA Not Reportable 08/23/21 04:16 Large Platelets Not Reportable 08/23/21 04:16 Giant Platelets Not Reportable 08/23/21 04:16 Platelet Satelliting Not Reportable 08/23/21 04:16 Plt Morphology Comment Not Reportable 08/23/21 04:16 RBC Morphology Not Reportable 08/23/21 04:16 Dimorphic RBCs Not Reportable 08/23/21 04:16 Polychromasia Not Reportable 08/23/21 04:16 Hypochromasia Not Reportable 08/23/21 04:16 Poikilocytosis Not Reportable 08/23/21 04:16 Anisocytosis 1+ 08/23/21 04:16 Microcytosis Not Reportable 08/23/21 04:16 Macrocytosis Not Reportable 08/23/21 04:16 Spherocytes Not Reportable 08/23/21 04:16 Pappenheimer Bodies Not Reportable 08/23/21 04:16 Sickle Cells Not Reportable 08/23/21 04:16 Target Cells Not Reportable 08/23/21 04:16 Tear Drop Cells Not Reportable 08/23/21 04:16 Ovalocytes Not Reportable 08/23/21 04:16 Helmet Cells Not Reportable 08/23/21 04:16 [place] Bodies Not Reportable 08/23/21 04:16 [place] Rings Not Reportable 08/23/21 04:16 [place] Cells Not Reportable 08/23/21 04:16 Bite Cells Not Reportable 08/23/21 04:16 Crenated Cell Not Reportable 08/23/21 04:16 Elliptocytes Not Reportable 08/23/21 04:16 Acanthocytes (Spur) Not Reportable 08/23/21 04:16 Rouleaux Not Reportable 08/23/21 04:16 Hemoglobin C Crystals Not Reportable 08/23/21 04:16 Schistocytes Not Reportable 08/23/21 04:16 Malaria parasites Not Reportable 08/23/21 04:16 Bob Bodies Not Reportable 08/23/21 04:16 Hem Pathologist Commnt No 08/23/21 04:16 APTT 29.2 Sec. (24.2-36.6) 08/22/21 13:13 VBG pH 7.456 (7.320-7.420) H 08/22/21 13:13 Sodium 133 mmol/L (137-145) L 08/23/21 04:16 Potassium 3.0 mmol/L (3.6-5.0) L 08/23/21 04:16 Chloride 97.6 mmol/L (98-107) L 08/23/21 04:16 Carbon Dioxide 20 mmol/L (22-30) L 08/23/21 04:16 Anion Gap 18 mmol/L 08/23/21 04:16 BUN 10 mg/dL (9-20) 08/23/21 04:16 Creatinine 0.9 mg/dL (0.8-1.3) 08/23/21 04:16 Estimated GFR > 60 ml/min 08/23/21 04:16 BUN/Creatinine Ratio 11 % 08/23/21 04:16 Glucose 121 mg/dL (75-100) H 08/23/21 04:16 POC Glucose 130 mg/dL (70-105) H 08/23/21 20:56 Lactic Acid 1.40 mmol/L (0.7-2.0) 08/22/21 23:21 Calcium 7.1 mg/dL (8.4-10.2) L 08/23/21 04:16 Magnesium 0.70 mg/dL (1.7-2.3) L* 08/22/21 13:13 Total Bilirubin 1.10 mg/dL (0.1-1.2) 08/22/21 13:13 AST 50 units/L (5-40) H 08/22/21 13:13 ALT 21 units/L (7-56) 08/22/21 13:13 Alkaline Phosphatase 45 units/L (35-129) 08/22/21 13:13 Total Creatine Kinase 105 units/L (55-170) 08/22/21 13:13 Troponin T 0.021 ng/mL (0.00-0.029) 08/22/21 23:21 Total Protein 5.4 g/dL (6.3-8.2) L 08/22/21 13:13 Albumin 2.9 g/dL (3.9-5) L 08/22/21 13:13 Albumin/Globulin Ratio 1.2 % 08/22/21 13:13 Triglycerides 128 mg/dL (2-149) 08/22/21 13:13 Cholesterol 73 mg/dL (50-199) 08/22/21 13:13 LDL Cholesterol Direct 25 mg/dL (50-130) L 08/22/21 13:13 HDL Cholesterol 20 mg/dL (40-59) L 08/22/21 13:13 Cholesterol/HDL Ratio 3.65 % 08/22/21 13:13 TSH 2.590 mlU/mL (0.270-4.200) 08/22/21 13:13 Urine Color Yellow (Yellow) 08/22/21 Unknown Urine Turbidity Slightly-cloudy (Clear) 08/22/21 Unknown Urine pH 6.0 (5.0-7.0) 08/22/21 Unknown Ur Specific [place] 1.002 (1.003-1.030) L 08/22/21 Unknown Urine Protein <15 mg/dl mg/dL (Negative) 08/22/21 Unknown Urine Glucose (UA) Neg mg/dL (Negative) 08/22/21 Unknown Urine Ketones Neg mg/dL (Negative) 08/22/21 Unknown Urine Blood Mod (Negative) 08/22/21 Unknown Urine Nitrite Neg (Negative) 08/22/21 Unknown Urine Bilirubin Neg (Negative) 08/22/21 Unknown Urine Urobilinogen < 2.0 mg/dL (<2.0) 08/22/21 Unknown Ur Leukocyte Esterase Lg (Negative) 08/22/21 Unknown Urine WBC (Auto) 176.0 /HPF (0.0-6.0) H 08/22/21 Unknown Urine RBC (Auto) 9.0 /HPF (0.0-6.0) 08/22/21 Unknown U Epithel Cells (Auto) < 1.0 /HPF (0-13.0) 08/22/21 Unknown Urine Mucus Few /HPF 08/22/21 Unknown Microbiology: Microbiology 08/22/21 13:13 Peripheral/Venous Blood Culture - Preliminary NO GROWTH AFTER 24 HOURS 08/22/21 13:13 Peripheral/Venous Blood Culture - Preliminary NO GROWTH AFTER 24 HOURS 08/22/21 Unknown Urine,Clean Catch Urine Culture - Preliminary Swann/IV: Voiding Method Urinal Active Medications - Current Medications Current Medications: Generic Name Dose Route Start Last Admin Trade Name Freq PRN Reason Stop Dose Admin Acetaminophen 650 mg 08/22/21 15:00 Acetaminophen 325 Mg Tab PO Q4H PRN Pain MILD(1-3)/Fever >100.5/LEMA Albuterol 2.5 mg 08/22/21 16:00 Albuterol 2.5 Mg/3 Ml Nebu IH Q4HRT PRN Shortness Of Breath Aspirin 325 mg 08/23/21 10:00 08/23/21 10:19 Aspirin Ec 325 Mg Tab PO 325 mg QDAY LAKISHA Administration Dextrose 0 ml 08/22/21 14:59 Dextrose 10% *Hypoglycemia IV PRN PRN Hypoglycemia Hydromorphone HCl 0.25 mg 08/22/21 15:00 Hydromorphone 1 Mg/1 Ml Inj IV Q4H PRN Pain, Moderate (4-6) Hydromorphone HCl 0.5 mg 08/22/21 15:00 Hydromorphone 1 Mg/1 Ml Inj IV Q23H PRN Pain , Severe (7-10) Levofloxacin/Dextrose 750 mg in 150 mls @ 100 mls/hr 08/22/21 16:00 08/23/21 18:55 Levaquin 750mg/150ml IV 08/26/21 17:29 100 mls/hr Q24H [facility] Administration Protocol Insulin Human Regular 0 units 08/23/21 11:30 08/23/21 22:00 Insulin Regular, Human 100 Units/1 Ml SUB-Q Not Given ACHS [facility] Protocol Nitroglycerin 0.4 mg 08/22/21 17:00 Nitroglycerin 0.4 Mg Tab Subl SL Q5M PRN Chest Pain Ondansetron HCl 4 mg 08/22/21 15:00 Ondansetron 4 Mg/2 Ml Inj IV Q8H PRN Nausea And Vomiting Oxycodone/Acetaminophen 1 tab 08/22/21 15:00 Oxycodone /Acetaminophen 5-325mg Tab PO Q16H PRN Pain, Moderate (4-6) Sodium Chloride 10 ml 08/22/21 22:00 08/23/21 22:00 Sodium Chloride 0.9% 10 Ml Flush Syringe IV 10 ml BID [facility]AKIS[facility] Administration Sodium Chloride 10 ml 08/22/21 15:00 Sodium Chloride 0.9% 10 Ml Flush Syringe IV PRN PRN LINE FLUSH Sodium Chloride 10 ml 08/22/21 17:00 Sodium Chloride 0.9% 10 Ml Flush Syringe IV PRN PRN LINE FLUSH Tamsulosin HCl 0.4 mg 08/23/21 10:00 08/23/21 10:23 Tamsulosin 0.4 Mg Cap PO 0.4 mg QDAY [facility] Administration Tramadol HCl 50 mg 08/22/21 17:00 Tramadol 50 Mg Tab PO Q6H PRN Pain, Moderate (4-6)
--- NOTE | 2021-08-24 10:54 | Discharge Summary ---
Providers - Providers Date of Admission: 08/22/21 14:36 Date of discharge: 08/24/21 Attending physician: CHAYA BERMAN 08/22/21 Consult to Cardiac Rehabilitation [CONS] Routine Reason For Exam: Phase I 08/23/21 09:36 Physical Therapy Evaluation and Treat [CONS] Routine Comment: Reason For Exam: deconditioning 08/24/21 09:15 Consult to Physician [CONS] Routine Comment: Consulting Provider: CARLEEN CHAWLA Physician Instructions: Reason For Exam: Sepsis, uti Primary care physician: NARROW [employer] CALENDERER Hospitalization Reason for admission: Sepsis/UTI Condition: Serious Hospital course: 61 YO Male with HTN, DM, BPH presents to ED for evaluation of generalized weakness, fever, rapid heart rate, and multiple loose stools over the past 3 days with persistent and worsening symptoms over the same timeframe. EMS was notified and upon arrival the patient was found to be in distress and subsequently transported to [facility] for further care and evaluation of the aforementioned symptoms. The patient was seen and evaluated in the emergency department. All lab and imaging studies reviewed. The patient was found to have fever with a temperature of 102 F, a heart rate of 126, respiratory rate in the 30s, and a blood pressure of 81/52. The patient was admitted with diagnosis of sepsis, UTI, toxic metabolic encephalopathy, NSTEMI with etiology likely secondary to type II ND from sepsis, hyponatremia, hypokalemia, hypomagnesemia and diarrhea. The patient was started on IV antibiotics and admitted to telemetry floor Hospital course: 08/23/2021. Continue IV antibiotics and follow-up blood and urine cultures. Elevated troponins likely secondary from type II ND from sepsis. Troponin has normalized. Echocardiogram is pending and will consider cardiology consultation. Patient reports recent history of UTI in June with associated sepsis. We will check CT scan of the abdomen pelvis. Continue to replete electrolytes 08/24/2021. Patient family member reports patient appeared to be more confused last night that was noticed with multiple telephone calls. Patient was on the phone with his when I entered the room and she was extremely upset that patient was confused. I explained to the that my encounter with the patient during my rounds was a new finding and agreed with her assessment. The patient's stated that the night nurse did not agree that the patient was confused and was a part of her frustration. I discussed the situation with the charge nurse to attempt service recovery. I later followed up with the with a telephone call at [phone] and informed her of the discussion I had with nursing. I also reported the CT abdomen findings of thickened bladder and enlarged prostate as well as negative blood and urine cultures up to date. ID consultation was ordered and is pending. However, patient's states that she wants to sign her out AMA and take him to [place] where he was hospitalized over the holidays. Risk of patient leaving AMA was discussed with the including . Disposition: 07 LEFT AGAINST MEDICAL ADVICE Final Discharge Diagnosis (Prints w/discharge instructions): sepsis, UTI, toxic metabolic encephalopathy, NSTEMI with etiology likely secondary to type II ND from sepsis, hyponatremia, hypokalemia, hypomagnesemia and diarrhea Core Measure Documentation - Palliative Care Palliative Care/ Comfort Measures: Not Applicable - Core Measures Any of the following diagnoses?: none Exam - Constitutional Vitals: Temp Pulse Resp BP Pulse Ox 97.8 F 80 18 136/79 96 08/24/21 05:50 08/24/21 05:50 08/24/21 05:50 08/24/21 05:50 08/24/21 05:50 General appearance: Present: no acute distress, well-nourished - EENT Eyes: Present: PERRL ENT: hearing intact, clear oral mucosa - Neck Neck: Present: supple, normal ROM - Respiratory Respiratory effort: normal Respiratory: bilateral: CTA - Cardiovascular Heart Sounds: Present: S1 & S2. Absent: rub, click - Extremities Extremities: pulses symmetrical, No edema Peripheral Pulses: within normal limits - Abdominal General gastrointestinal: Present: soft, non-tender, non-distended, normal bowel sounds Male genitourinary: Present: normal - Integumentary Integumentary: Present: clear, warm, dry - Musculoskeletal Musculoskeletal: gait normal, strength equal bilaterally - Psychiatric Psychiatric: appropriate mood/affect, intact judgment & insight - Neurologic Neurologic: CNII-XII intact, moves all extremities, other (Encephalopathic and confused) Plan Follow up with: PRIMARY CARE, [Primary Care Provider] - 3-5 Days
[2021-08-24] MEDS: TAMSULOSIN 0.4 MG CAP PO SCH (11:26)
[2021-08-24] MEDS: ASPIRIN EC 325 MG TAB PO SCH (11:27)
--- NOTE | 2021-08-24 14:30 | Electrocardiograph Report ---
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
--- NOTE | 2021-08-24 14:34 | Electrocardiograph Report ---
[facility] Test Date: 2021-08-23 Test Time: 08:13:43 Pat Name: BHAVIN CASTANO Department: Room: A387 1 Gender: M Supply Chain Development Manager: YARIEL : 1960 Requested By: BARBI ESPOSITO Order Number: [id number] Reading MD: Johnnie Corral Measurements Intervals [place] Rate: 85 P: 48 [place]: 146 QRS: -49 QRSD: 155 T: 61 QT: 459 QTc: 546 Interpretive Statements Sinus rhythm Right bundle branch block Abnormal ECG Compared to ECG 08/22/2021 13:41:28 No significant changes Electronically Signed On 08-24-2021 14:34:47 EST by Johnnie Corral
--- NOTE | 2021-08-24 14:37 | Electrocardiograph Report ---
[facility] Test Date: 2021-08-23 Test Time: 11:07:24 Pat Name: BHAVIN CASTANO Department: Room: A387 1 Gender: M Silverlight Developer: YARIEL : 1960 Requested By: BARBI ESPOSITO Order Number: [id number] Reading MD: Jonhnie Corral Measurements Intervals [place] Rate: 87 P: 45 [place]: 165 QRS: -76 QRSD: 161 T: 50 QT: 453 QTc: 545 Interpretive Statements Sinus rhythm Occasional PACs Probable left atrial enlargement Right bundle branch block Left anterior fascicular block Compared to ECG 08/23/2021 08:13:43 No significant changes Electronically Signed On 08-24-2021 14:37:28 EST by Johnnie Corral
== END 2021-08-24 12:05 | disposition left against medical advice (07) | DRG 871 ==
LOC: ED 12:00 → 3A 14:36
PROVIDERS: ADMIT Internal Medicine; ATTEND Hospitalist
DX: A41.9 Sepsis, unspecified organism (principal); G92.8 Other toxic encephalopathy; I21.A1 Myocardial infarction type 2; E87.1 Hypo-osmolality and hyponatremia; E87.6 Hypokalemia; Z53.29 Procedure and treatment not carried out because of patient's decision for other reasons; E83.42 Hypomagnesemia; E86.0 Dehydration; N40.0 Benign prostatic hyperplasia without lower urinary tract symptoms; Z83.3 Family history of diabetes mellitus; Z82.49 Family history of ischemic heart disease and other diseases of the circulatory system; Z79.4 Long term (current) use of insulin; Z88.0 Allergy status to penicillin
CPT/HCPCS: 36415; 71045; 74176; 80048; 80053; 80061; 81001; 82140; 82550; 82805; 82962; 83735; 84443; 84484; 85007; 85025; 85730; 87040; 87086; 93005; 93010; 93306; G0378; Q9967; C8929; J0696; J1815; J1956; J3370; J3475; J3480; J7040; J7120